=== PATIENT | male | born 1995 | race Hispanic/Latino ===

== ENCOUNTER 2019-11-19 14:41 | Emergency (ER) | payer SELFPAY ==
[2019-11-19 17:49] VITALS: TEMP 97.3; O2SAT 100
[2019-11-19 17:51] VITALS: BP 125/71
== END 2019-11-19 17:44 | disposition home or self-care (01) ==
LOC: ER 14:41
DX: R07.89 Other chest pain (principal)
CPT/HCPCS: 71046; 93005; 99284